=== PATIENT | male | born 1995 | race Caucasian/White ===

== ENCOUNTER 2018-04-21 18:33 | Emergency (ER) | payer OTHER ==
[2018-04-21 18:40] VITALS: BP 156/100
--- NOTE | 2018-04-21 19:20 | EDPHY ---
H & P Stated Complaint: episodes of stabbing pain to R hinduism--recent cold sores started acyclovir - Medical/Surgical History Hx Asthma: No Hx Chronic Respiratory Disease: No Hx Diabetes: No Hx Cardiac Disease: No Hx Renal Disease: No Hx Cirrhosis: No Hx Alcoholism: No Hx HIV/AIDS: No Hx Splenectomy or Spleen Trauma: No Other PMH: eczema - Social History Smoking Status: Never smoked Time Seen by Provider: 04/21/18 19:04 Constitutional: Initial Vital Signs Temperature (C) 36.7 C 04/21/18 18:36 Heart Rate 81 04/21/18 18:36 Respiratory Rate 16 04/21/18 18:36 Blood Pressure 156/100 H 04/21/18 18:36 O2 Sat (%) 97 04/21/18 18:36 O2 Delivery Mode Room Air Allergies/Adverse Reactions: No Known Allergies Allergy (Unverified 04/21/18 18:35) Home Medications: Medication Instructions Recorded Acyclovir 04/21/18 Dexamethasone 04/21/18 Medical Decision Making ED Course/Re-evaluation: CHIEF COMPLAINT: Headache HISTORY OF PRESENT ILLNESS: This patient is a 22 year old male with history of environmental allergies and recurrent 'skin problems'. Around April 10, he had a sensation of tingling around his lips, developed lesions similar to cold sores, which he has never had before. He is currently taking acyclovir and dexamethasone and his symptoms are largely resolving. He reports some right-sided lymphadenopathy which is also resolving. Last night and today, he has had a "zone of intense, 3-5 second pain" over his right cheek and behind his right eye extending to his hinduism similar to an "ice-pick headache". This has happened about 50 times today. He has never had similar symptoms in the past. He states "I feel like whatever virus is in my face is in my brain". He denies nausea, vomiting, visual changes , lightheadedness, or other associated symptoms. REVIEW OF SYSTEMS: A comprehensive 10 system review of systems is otherwise negative aside from elements mentioned in the history of present illness and medical decision making. PHYSICAL EXAM: HR, BP, O2 Sat, RR. Temp noted General Appearance: Alert, well hydrated, appropriate, and non-toxic appearing. Head: Atraumatic without scalp tenderness or obvious injury Eyes: Pupils equal, round, reactive to light and accommodation, EOMI, no trauma , no injection. Ears: Clear bilaterally, no perforation, normal landmarks Nose: Atraumatic, no rhinorrhea, clear. Throat: Small healing lesions over lips. There is no erythema or exudates, no lesions, normal tonsils, mucus membranes moist. Neck: Supple, 2+ carotid upstroke, nontender, no lymphadenopathy. Respiratory: No retractions, no distress, no wheezes, and no accessory muscle use. Lungs are clear to auscultation bilaterally. Cardiovascular: Regular rate and rhythm, no murmurs, rubs, or gallops. Bilateral carotid, radial, dorsalis pedis, and posterior tibial pulses intact. Good capillary refill all extremities. Gastrointestinal: Abdomen is soft, nontender, non-distended, no masses, no rebound, no guarding, no peritoneal signs. Musculoskeletal: Normal active ROM of all extremities, atraumatic. Neurological: Alert, appropriate, and interactive. The patient has normal DTRs and non-focal cranial nerves, motor, sensory, and cerebellar exam. Skin: No rashes, good turgor, no nodules on palpation. Past medical history: Environmental allergies Past surgical history: Noncontributory Family history: Noncontributory Social history: Single. Lives in [place]. Does not abuse tobacco, drugs, or alcohol. DIFFERENTIAL DIAGNOSIS: The differential diagnosis for the patient's headache included but was not limited to subarachnoid hemorrhage, migraine headache, tension headache and infectious causes such as meningitis, pharyngitis and sinusitis. MEDICAL DECISION [id number] y/o male presents with two day history of frequent "stabbing" headache pains. Exam is largely unremarkable. The patient is neurologically intact. He presents largely for imaging to r/o any acute intracranial processes, particularly -related to his recent possible viral HSV infection. Plan for I- stat, CT head with and without contrast. 20:00 Care of this patient transferred to Dr. Glynn at shift change pending CT results. If these are normal, plan to discharge home in good condition. ( Herman Ohara) 8:00 p.m.-this patient was signed over to me to check the CT scan and if normal to discharge patient home. CT scan results reported to me by Dr. Anselmo Fong: Normal. Results discussed with the patient. Will discharge this patient home. (Pierson,Dulce S) Differential Diagnosis: Headache including but not limited to subarachnoid hemorrhage, migraine headache , tension headache and infectious causes such as meningitis, pharyngitis and sinusitis. (Dulce Glynn) - Data Points Laboratory Results: 04/21/18 19:50 POC Hgb 15.6 gm/dL gm/dL (13.7-17.5) POC Hct 46 % % (40-51) POC Sodium 142 mEq/L mEq/L (135-145) POC Potassium 3.5 mEq/L mEq/L (3.3-5.0) POC Chloride 103 mEq/L mEq/L (97-110) POC Total CO2 24 mEq/L mEq/L (22-31) POC BUN 19 mg/dL mg/dL (7-23) POC Creatinine 0.8 mg/dL mg/dL (0.7-1.3) POC Glucose 109 mg/dL H mg/dL (70-100) Point of Care Test Results: Chemistry 04/21/18 19:50 POC Sodium 142 mEq/L mEq/L (135-145) POC Potassium 3.5 mEq/L mEq/L (3.3-5.0) POC Chloride 103 mEq/L mEq/L (97-110) POC Total CO2 24 mEq/L mEq/L (22-31) POC BUN 19 mg/dL mg/dL (7-23) POC Creatinine 0.8 mg/dL mg/dL (0.7-1.3) POC Glucose 109 mg/dL H mg/dL (70-100) ISTAT H&H 04/21/18 19:50 POC Hgb 15.6 gm/dL gm/dL (13.7-17.5) POC Hct 46 % % (40-51) Departure - Departure Disposition: Home, Routine, Self-Care Clinical Impression: Headache Qualifiers: Headache type: unspecified Headache chronicity pattern: acute headache Intractability: not intractable Qualified Code(s): R51 - Headache Condition: Good Instructions: Acute Headache (ED) Additional Instructions: Follow-up with your primary care physician within 2-3 days. Return to the emergency department for severe pain, nausea, vomiting, numbness, weakness, neck pain, fever or other concerns. Use Tylenol and/or ibuprofen as directed. Adult Pain & Fever Control: We recommend Acetaminophen (Tylenol) and Ibuprofen (Motrin,Advil) for pain and fever control. When fever is high or pain severe, both drugs can be used at the same time, but at different intervals. Please note the time differences. Your dose is: Acetaminophen 650mg every 4 to 6 hours Ibuprofen 600mg every 6-8 hours with food Note: do not take Acetaminophen with Hydrocodone (Vicodin, Lortab) or Oxycodone (Percocet). These medications also contain Acetaminophen. No more than 3000mg of Acetaminophen should be taken in 24 hours (for an adult). Referrals: Donna Aguilar MD [Medical Doctor] - As per Instructions
[2018-04-21] MEDS ORDERED: IOHEXOL 350mgI/ML (OMNIPAQUE) 150 ML BTL IV ONE (19:53)
== END 2018-04-21 21:33 | disposition home or self-care (01) ==
DX: R51 Headache (principal)
CPT/HCPCS: 82435-PO; 82565-PO; 82947-PO; 84132-PO; 84295-PO; 84520-PO; 85014-ER; Q9967